=== PATIENT | female | born 1955 | race Caucasian/White ===

== ENCOUNTER 2016-08-25 21:41 | Emergency (ER) | payer OTHER ==
[~2016-08-25] VITALS: Ht 162.6 cm; Wt 60.9 kg
[~2016-08-25 21:41] MED LIST: CITA10TA9 PO; GABA-502 PO; HYDR-4003 PO; HYDR2TAB27 PO; IBUP400T22 PO; LORA-302 PO; MS15TCR PO; OMEP20TA24 PO; ONDA-53 PO; OXYC5CAP4 PO; POLY17PO6 PO; PROC-4 PO; PROM25SU46 RC; WHEA152P PO
[2016-08-25 21:49] VITALS: BP 145/90; PULSE 114; RESP 26; O2SAT 93
--- NOTE | 2016-08-25 22:04 | ED.REPORT ---
HPI-Dyspnea / Wheezing Date of Service Aug 25, 2016 ED Provider: Everton Roth MD 60 year old female with a history of stage IV uterine cancer with mets to lungs presents to the ER accompanied by her complaining of several weeks of worsening cough and shortness of breath. Associated symptoms include fever, and dysuria. Yesterday she was seen by Dr. Goldberg, Oncology, for further imaging studies that revealed increased fluid accumulation in the left lung. At this time the decision was made to cease chemotherapy treatments. She is currently transitioning from palliative to hospice care. Patient is DNR, DNI with limited interventions, specifically antibiotics. Nursing Notes Stated Complaint: FLUID ON LUNGS/ FEVER Chief Complaint: General Complaint Nursing Notes Reviewed: Yes Allergies: Coded Allergies: rifampin (Verified Allergy, Mild, URINARY URGENCY AND FREQUENCY, 05/04/16) Scheduled Cephalexin (Cephalexin) 500 Mg Capsule 500 MG PO TID Citalopram (Citalopram) 10 Mg Tablet 10 MG PO DAILY Gabapentin (Gabapentin) 300 Mg Capsule 300 MG PO HS Morphine Sulfate ER (MS Contin) 15 Mg Tablet.er 15 MG PO BID Omeprazole Magnesium (Prilosec Otc) 20 Mg Tablet.dr 20 MG PO evening Wheat Dextrin (Benefiber) 3 Gram/4 Gram Powder 152 GM PO BID Scheduled PRN Hydrocodone-Acetaminophen 5-325 mg (Hydrocodone-Acetaminophen 5-325 mg) 1 Each Tablet 1 TABLET PO Q4H PRN PRN For Pain Hydromorphone (Dilaudid) 2 Mg Tablet 1-2 TAB PO Q4H PRN PRN Pain Ibuprofen (Ibuprofen) 400 Mg Tablet 400 MG PO QID PRN PRN For Pain Lorazepam (Ativan) 0.5 Mg Tablet 0.5 MG PO Q6H PRN PRN For Anxiety Ondansetron (Ondansetron) 4 Mg Tablet 4 MG PO TID PRN PRN For Nausea Polyethylene Glycol 3350 (Miralax) 17 Gm Powd.pack 17 GM PO DAILY PRN PRN For Constipation Prochlorperazine Maleate (Compazine) 10 Mg Tablet 10 MG PO QID PRN PRN For Nausea Promethazine HCl (Phenergan) 25 Mg Supp.rect 12.5 MG RC QID PRN PRN For Nausea/ Vomiting oxyCODONE (oxyCODONE) 5 Mg Capsule 5-10 MG PO Q4-6H PRN PRN For Pain General Time Seen by MD: 22:03 Chief Complaint Cough, Shortness of breath, Other (Fever) Hx Obtained From: Patient, Spouse Arrived By: Walk-in Sudden in Onset?: No Onset Occurred: More than a week ago... (several weeks) Associated with: Reports: Fever Additional Notes: Dysuria Exacerbated by: Deep breath Pertinent Negative: Relieved by nothing Recent Healthcare: Recent doctor visit Past Medical History Past Medical History Notes: Code Status: DNR, DNI with limited interventions. Specifically antibiotics. Past Medical History stage 4 uterine cancer Reports: Hypertension Past Surgical History Reports: Smoking History Former Smoker Social History Alcohol Use: Denies alcohol use Ambulatory Status Independent Review of Systems Constitutional: Reports: Chills, Fever, Malaise, Weakness - generalized Respiratory: Reports: Non-productive cough, Shortness of breath, Denies: Hemoptysis Complete sys rev & neg: except as marked. GI: Denies: Abdominal pain, Diarrhea, Nausea, Vomiting Female: Reports: Dysuria Neurologic: Denies: Headache Physical Exam Initial Vital Signs Vital Signs (First) Date Time Temp Pulse Resp B/P Pulse Ox O2 Delivery O2 Flow Rate FiO2 08/25/16 21:49 38.5 114 26 145/90 93 Room Air Initial VS: Reviewed, Vital signs abnormal Head / Eyes: Atraumatic, Normocephalic Extremities: Vascular intact, Neuro intact, No swelling, No tenderness Skin: Warm, Dry, No cyanosis Neurologic: Alert, Oriented, Nonfocal Psychiatric: Mood/affect normal, Behavior normal, Normal thought content General/Constitutional: Awake, Alert, Well developed Neck: Atraumatic, Supple, No meningismus, Full range of motion, No swelling, Non-tender, No masses Respiratory / Chest: No rales, No rhonchi, No wheezing Diminished Breath Sounds: Positive: Decreased L (base) Pain with deep breathing Cardiovascular: Heart rate NL, Regular rhythm, Heart sounds NL, Peripheral circulation NL Abdomen: Soft, No guarding, No rebound, No distention Diffuse right side tenderness. Interpretation & Diagnostics Lab Results Interpretation Result Diagram: 08/25/16231908/25/16 232 Test 08/25/16 23:13 08/25/16 23:20 Urine Color Yellow (YELLOW) Urine Appearance Clear (CLEAR,HAZY) Urine pH 6.0 (5.0-8.0) Urine Specific [place] 1.010 (1.003-1.035) Urine Protein Negativemg/dL (NEG,TRACE) Urine Glucose (UA) Negativemg/dL (NEGATIVE) Urine Ketones Negativemg/dL (NEGATIVE) Urine Occult Blood Small (NEGATIVE) Urine Nitrite Negative (NEGATIVE) Urine Bilirubin Negative (NEGATIVE) Urine Urobilinogen Normalmg/dL (NORMAL) Urine Leukocyte Esterase Trace (NEGATIVE) Urine RBC 3-10/hpf (0-2) Urine WBC 11-50/hpf (0-5) Urine Epithelial Cells Few/hpf (NONE-MOD) Urine Crystals None seen (NONE SEEN) Urine Bacteria Few/hpf (NONE-FEW) Urine Hyaline Casts None/lpf (NONE) Urine Granular Casts None seen (NONE SEEN) Urine Waxy Casts None seen (NONE SEEN) Urine Red Blood Cell Casts None seen (NONE SEEN) Urine White Blood Cell Casts None seen (NONE SEEN) Urine Mucus None seen (None Seen) Urine Trichomonas None seen (NONE SEEN) Urine Yeast None (NONE SEEN) Urinalysis Comment None Urine Culture Reflexed Indicated White Blood Count 11.8th/mm3 (3.8-10.1) Red Blood Count 3.44mil/mm3 (3.90-5.20) Hemoglobin 9.0g/dL (12.0-15.6) Hematocrit 27.7% (35.0-46.0) Mean Corpuscular Volume 80.5fL (81-100) Mean Corpuscular Hemoglobin 26.2pg (27.0-35.0) Mean Corpuscular Hemoglobin Concent 32.5% (32.0-37.0) Red Cell Distribution Width 17.5% (12.3-15.4) Platelet Count 528bil/L (150-400) Neutrophils (%) (Auto) 57.8% (40-74) Lymphocytes (%) (Auto) 6.5% (14-46) Monocytes (%) (Auto) 32.5% (4-12) Eosinophils (%) (Auto) 0.8% (0-5) Basophils (%) (Auto) 0.3% (0-3) Sodium Level 135mEq/L (134-144) Potassium Level 3.8mEq/L (3.5-5.2) Chloride Level 94mEq/L (97-108) Carbon Dioxide Level 25mmol/L (18-29) Blood Urea Nitrogen 9mg/dL (6-24) Creatinine 0.59mg/dL (0.57-1.00) Estimat Glomerular Filtration Rate 150mL/min (>59) Glucose Level 115mg/dL (60-99) Calcium Level 8.8mg/dL (8.5-10.1) Total Bilirubin 0.3mg/dL (0.0-1.2) Aspartate Amino Transf (AST/SGOT) 16U/L (0-50) Alanine Aminotransferase (ALT/SGPT) 10U/L (0-32) Alkaline Phosphatase 80U/L (25-150) Troponin T 0.010ug/L (0.0-0.011) Pro-B-Type Natriuretic Peptide 247.7pg/mL (0-287) Total Protein 6.5g/dL (6.4-8.4) Albumin 2.8g/dL (3.4-5.0) Hold Butt Top Tube Received (Received) Lab values outside NL range: no clinical significance. Lab Results Interpretation: Worsening anemia, mild white count elevation. 11-50 wbc per hpf, culture pending. ECG Interpretation ECG Interpretation: Sinus tachycardia, rate 106 Time: 22:20 Interpreted by: ED physician X-Ray Chest Interpretation Chest Xray Interpretation: Near complete whiteout of the left lung secondary to pleural effusion Multiple metastatic nodules in the lungs, similar to previous films. Increase since CT August 21, 2015. View: Portable, 1 view Interpretation / Wet Read by: Wet read ED physician Re-Eval/Medical Decision Med Decision/Clinical Course 60-year-old female with metastatic uterine cancer presents with increasing shortness of breath and fever. She is found to have an increasing left pleural effusion. She scheduled to have that dealt with in 2 days. She will call and try and get that appointment moved up. She also has worsening anemia which she will discuss with Dr. Goldberg. She also has evidence of urinary tract infection and was given Rocephin 2 g IV to be followed by [facility]. Source of Hx: Old records Re-Evaluation/Progress #1: Time of Eval: 23:12 Re-Evaluation/Progress Note: Informed patient of chest x-ray results. Re-Evaluation/Progress #2: Time of Eval: 23:51 Re-Evaluation/Progress Note: Discussed lab results and updated patient on the plan of care. Counseled Regarding: Diagnosis, Lab results, Need for follow-up, When/why to return to ED Discharge & Departure Impression: Primary Impression: Urinary tract infection Urinary tract infection type: acute cystitis Hematuria presence: without hematuria Qualified Code: N30.00 - Acute cystitis without hematuria Additional Impressions: Anemia Anemia type: unspecified type Qualified Code: D64.9 - Anemia, unspecified Pleural effusion on left Disposition: Home Discharge Condition All VS Reviewed: Yes Condition: Stable Patient Instructions: Urinary Tract Infection in Women (ED) Additional Instructions: Your pleural effusion is a little worse, and this would explain your increasing shortness of breath. Talk to your regular provider in the morning to see if you can get the drainage procedure done sooner. You have some anemia which is gradually worsening over the last month. Talk to your regular provider about that. You also have a urinary tract infection. You were given Rocephin 2 g IV in the emergency room, to be followed by cephalexin 500 mg by mouth 3 times a day for 10 days, #30 prescription written. Drink plenty of fluids. Urine recheck in a couple of weeks to make sure the infection went away completely. Return here or call me at [phone] between the hours of 9 PM and 6 AM tonight or tomorrow night if you worsen or if you have any concerns or questions. Referrals: Delbert Guajardo MD (PCP) Ej Cancino MD Attestation Portions of this note were transcribed by Delgado Powell. I, Dr. Roth, personally performed the history, physical exam and medical decision-making; I reviewed and confirmed the accuracy of the information in the transcribed note. Signed by: Federico Victoria. 08/26/2016, 01:13 copies to: Delbert Guajardo MD; Ej Cancino MD, Howard L MD Aug 25, 2016 22:04 DELGADO POWELL Aug 25, 2016 22:17
[2016-08-25 23:26] LABS: APPEARANCE,URINE CLEAR (CLEAR,HAZY); COLOR,URINE YELLOW (YELLOW); OCCULT BLOOD,URINE SMALL (NEGATIVE); UROBILINOGEN,URINE NORMAL (NORMAL)
[2016-08-25 23:31] LABS: BASOPHILS % (AUTO) 0.3 % (0-3); EOSINOPHILS % (AUTO) 0.8 % (0-5); MONOCYTES % (AUTO) 32.5 % (4-12); Mean Corpuscular Hemoglobin 26.2 pg (27.0-35.0); Mean Corpuscular Volume 80.5 fL (81-100); NEUTROPHILS % (AUTO) 57.8 % (40-74); Platelet Count 528 bil/L (150-400)
[2016-08-25] MEDS ORDERED: cefTRIAXone Inj 2,000 MG in IV Premix 1 EACH IV ONE (23:55)
[2016-08-26 00:14] LABS: TROPONIN T 0.01 ug/L (0.0-0.011)
[2016-08-26] MEDS ORDERED: HYDROmorphone 0.5 mg/0.5 mL iSecure Syringe IVPUSH ONE (01:05)
[2016-08-26] MEDS ORDERED: CEPH500C PO (01:12)
[2016-08-26] MEDS ORDERED: HepLOK Flush 100 unit/mL 5 mL Inj ONE (01:30)
[2016-08-26] MEDS ORDERED: HYDROmorphone 1 mg/mL Inj IVPUSH ONE (01:35)
[2016-08-26 01:55] VITALS: BP 113/72; PULSE 78; RESP 12; O2SAT 96
--- NOTE | 2016-08-26 07:56 | DRSVH ---
PROCEDURE: X-RAY CHEST ONE VIEW, PORTABLE ([id number]) INDICATIONS: dyspnea, effusion, fever TECHNIQUE: One view of the chest was acquired. COMPARISON: [facility], CR, XR CHEST 1VW (PORTABLE), 04/10/2016, 18:13. FINDINGS: Surgical changes and devices: Right chest wall Port-A-Cath is stable in appearance. Lungs and pleura: Large left-sided pleural fluid collection is noted. Numerous bilateral lung nodules are noted compatible with metastatic disease. Mediastinum: Mediastinal contours appear normal. Heart size is normal. Bones and chest wall: No suspicious bony lesions. Overlying soft tissues appear unremarkable. IMPRESSION: 1. Large left-sided pleural effusion. 2. Numerous bilateral lung metastatic nodules. Dictated by: Dana High MD, PhD on 08/26/2016 at 7:54 Approved by: Dana High MD, PhD on 08/26/2016 at 7:54
== END 2016-08-26 01:59 | disposition home or self-care (01) ==
LOC: SED 21:41
DX: N30.00 Acute cystitis without hematuria (principal); J90 Pleural effusion, not elsewhere classified; D64.9 Anemia, unspecified; I10 Essential (primary) hypertension; C55 Malignant neoplasm of uterus, part unspecified; C78.00 Secondary malignant neoplasm of unspecified lung; Z87.891 Personal history of nicotine dependence; Z88.8 Allergy status to other drugs, medicaments and biological substances
CPT/HCPCS: 71010; 80053; 81000; 83880; 84484; 85025; 87040; 87086; 87088; 93005; 96365; 96375; 96376; 99285; J0696; J1170; J1642